=== PATIENT | male | born 1975 | race Caucasian/White ===

== ENCOUNTER → 2017-01-18 | Outpatient (CLI) | payer BC ==
[~2017-01-18] MED LIST: BUPR1PAT10 TD; HYDR-906; METO-448 PO
--- NOTE | 2017-01-18 11:15 | RADRPT ---
PROCEDURE: XR left elbow. CLINICAL INDICATION: Elbow pain TECHNIQUE: Three views of the elbow are available for review. COMPARISON: No prior studies are available for comparison. FINDINGS: There is mild enthesopathy involving the olecranon process at the insertion of the triceps tendon. There is normal mineralization, architecture and alignment. No fracture or osseous lesion is identi fied. The joints are unremarkable. The soft tissues are unremarkable. IMPRESSION: Mild enthesopathy involving the olecranon process at the insertion of the triceps tendon RPTAT: HGDB .Joey Farris MD, Date Time Electronically viewed and signed by .Joey Farris MD, on 01/18/2017 11:15 .B/
== END | disposition home or self-care (01) ==
LOC: RAD 10:17
DX: M70.32 Other bursitis of elbow, left elbow (principal); S52.022G Displaced fracture of olecranon process without intraarticular extension of left ulna, subsequent encounter for closed fracture with delayed healing; X58.XXXD Exposure to other specified factors, subsequent encounter
CPT/HCPCS: 73070

== ENCOUNTER → 2017-09-26 | Outpatient (CLI) | payer BC ==
--- NOTE | 2017-09-26 16:59 | RADRPT ---
PROCEDURE: XR Chest. CLINICAL INDICATION: Cough. TECHNIQUE: Two views. Frontal and lateral. COMPARISON: 06/19/2016. FINDINGS: The lungs are clear. The heart size is normal. There is calcification in the aorta consistent with atherosclerosis. There is no pleural effusion. There is no pneumothorax. IMPRESSION: 1. Atherosclerosis. 2. Clear lungs. 3. Otherwise unremarkable chest radiograph. RPTAT: QQ .Nura Bolden MD, MD Date Time Electronically viewed and signed by .Nura Bolden MD, on 09/26/2017 16:58 .R/
== END | disposition home or self-care (01) ==
LOC: RAD 16:01
DX: J18.9 Pneumonia, unspecified organism (principal); M51.26 Other intervertebral disc displacement, lumbar region
CPT/HCPCS: 71020

== ENCOUNTER → 2017-12-05 | Outpatient (CLI) | END | disposition home or self-care (01) ==

== ENCOUNTER → 2018-01-08 | Outpatient (CLI) | END | disposition home or self-care (01) ==

== ENCOUNTER 2018-01-31 13:34 | Day surgery (SDC) | END 2018-01-31 18:50 | disposition home or self-care (01) ==

== ENCOUNTER 2019-03-24 10:55 | Day surgery (SDC) | payer BC ==
[~2019-03-24] VITALS: Ht 170.2 cm; Wt 86.7 kg
[2019-03-24] VITALS (7 sets, daily range): BP systolic 93–118; BP diastolic 66–77; PULSE 74–107; RESP 16–20; Ht 170.2 cm; Wt 86.7 kg
[~2019-03-24 10:55] MED LIST changes: +ALBU8.5H8 INH; +AZIT250T PO; +PRED20TA PO
[2019-03-24] MEDS ORDERED: SYN2 PO (11:28)
[2019-03-24] MEDS ORDERED: METO-448 PO (11:29)
[2019-03-24] MEDS ORDERED: HYDR-4012 PO (11:30)
[2019-03-24] MEDS ORDERED: LACTATED RINGER'S 1,000 ML IV SCH (12:00)
--- NOTE | 2019-03-24 12:25 | PREAC ---
Date/Time of Note Date/Time of Note DATE: 03/24/19 TIME: 12:20 Anesthesia Eval and Record Evaluation Time Pre-Procedure Interview DATE: 03/24/19 TIME: 12:20 Age 43 Sex male NPO: 8 hrs Preoperative diagnosis bilateral lower extremity radiculopathy Planned procedure L4-S1 bilateral transforaminal epidurals Past Medical History Past Medical History: Includes (hx thyroid CA w/ surgery and radiation; chronic back pain; PVC) Surgery & Anesthesia Issues No known issue (gallbladder sx, thyroidectomy, knee surgeries, elbow sx) Meds Anticoagulation: No Beta Jen within 24 hr: Yes Reported Medications Hydrocodone/Acetaminophen (Gardner 7.5-325 Tablet) 1 Each Tablet, 1 EACH PO DAILY PRN for PAIN, TAB 03/24/19 Metoprolol Tartrate* (Lopressor*) 25 Mg Tab, 25 MG PO DAILY, #60 TAB 03/24/19 Levothyroxine Sodium* (Synthroid*) 200 Mcg Tablet, 250 MCG PO BEFORE BREAKFAST, #30 TAB 03/24/19 Discontinued Reported Medications Buprenorphine (Butrans) 1 Each Patch.tdwk, 1 EACH TD WEEKLY 05/25/16 Hydrocodone Bit-Acetaminophen (Gardner) 1 Tab Tablet 09/15/13 Metoprolol Tartrate* (Lopressor*) 25 Mg Tab, 25 MG PO DAILY 09/08/13 Discontinued Scripts Prednisone* (Prednisone*) 20 Mg Tab, 40 MG PO DAILY for 5 Days, TAB Prov:CHAPO CALDERON MD 11/22/18 Albuterol Sulfate* (Proair HFA*) 8.5 Gm Hfa.aer.ad, 2 PUFF INH Q4H PRN for WHEEZING AND SOB, #1 INHALER Prov:CHAPO CALDERON MD 11/22/18 Azithromycin* (Zithromax*) 250 Mg Tablet, 250 MG PO .ZPACK DIRECTED, #6 TAB TAKE 500 MG (2 TABS) THE FIRST DAY THEN 250 MG (1 TAB) DAYS 2-5 Prov:CHAPO CALDERON MD 11/22/18 Current Medications Lactated Ringer's 1,000 ml @ 25 mls/hr Q24H IV ; Start 03/24/19 at 12:00 Meds reviewed: Yes Allergies Coded Allergies: famotidine (Verified Allergy, Unknown, SLOW HEART BEAT, 03/24/19) ibuprofen (Verified Allergy, Unknown, SLOW HEART BEAT, 03/24/19) Uncoded Allergies: PORK (Allergy, Intermediate, RASH, 05/25/16) Allergies Reviewed: Yes Labs/Studies Labs Reviewed: Reviewed by anesthesiologist test: N/A Pre-procedure Exam Last vitals Vital Signs Date Temp Pulse Resp B/P (MAP) Pulse Ox O2 O2 Flow FiO2 Time Delivery Rate 03/24/19 98.3 107 16 118/77 98 Room Air 11:47 (91) Airway: Adequate mouth opening, Adequate thyromental dist Mallampati: Mallampati II Teeth: Normal (missing lower left molar) Lung: Normal Heart: Normal ASA Physical Status ASA physical status: 2 Emergency: None Planned Anesthetic General/MAC: MAC Pre-operative Attestations Prior to commencing anesthesia and surgery, the patient was re-evaluated, there was verification of: *The patient's identity *The results of appropriate recent lab work and preoperative vital signs *The above evaluation not changing prior to induction *Anesthetic plan, risk benefits, alternative and complications discussed with patient/family; questions answered; patient/family understands, accepts and wishes to proceed. REGAN GILES March 24, 2019 12:25
[2019-03-24] MEDS ORDERED: MEPERIDINE 25 MG INJ IV PRN (12:30)
[2019-03-24] MEDS ORDERED: morphine (1 MG/ML) 10ML SYRINGE IV PRN ×2 (12:30)
[2019-03-24] MEDS ORDERED: ONDANSETRON 4 MG INJ IV PRN (12:30)
[2019-03-24] MEDS ORDERED: ALBUTEROL 0.083% (NEB) 2.5 MG/3 ML AMP HHN PRN (12:30)
[2019-03-24] MEDS ORDERED: FENTAnyl 50 MCG/ML VIAL IV PRN ×2 (12:30)
[2019-03-24] MEDS ORDERED: OXYCODONE/ACETAMINOPHEN (5/325) TAB PO PRN ×2 (12:30)
[2019-03-24] MEDS ORDERED: HYDROmorphONE 1 MG/5 ML IV SYRINGE IV PRN ×3 (12:30)
[2019-03-24] MEDS ORDERED: LABETALOL HCL 20MG INJ IV PRN (12:30)
[2019-03-24] MEDS ORDERED: DIPHENHYDRAMINE 50 MG INJ IV PRN (12:30)
--- NOTE | 2019-03-24 12:39 | HPN ---
Date/Time of Note Date/Time of Note DATE: 03/24/19 TIME: 12:39 Interval H&P Admission Note Pt. seen H&P reviewed: No system changes KEISHA CHEUNG MD March 24, 2019 12:39
--- NOTE | 2019-03-24 12:51 | OPR ---
Date/Time of Note Date/Time of Note DATE: 03/24/19 TIME: 12:42 Operative Report Procedure Date: March 24, 2019 Preoperative Diagnosis lumbar radiculopathy Postoperative Diagnosis lumbar radiculopathy Operation/Procedure Performed Bilateral L4, L3 TFESI Surgeon see signature line [employer] Polisher None Anesthesia Type: MAC Estimated Blood Loss: none Transfusion none Specimen none Grafts/Implants none Tubes/Drains none Complications none Pt Condition Post Procedure: stable Disposition: PACU Procedure Description The patient was placed in the prone position on the radiolucent operating table. The lumbar area was prepped and draped in the appropriate sterile fashion. The left L4 level was identified for a transforaminal epidural injection and the overlying skin and subcutaneous tissue were anesthetized. A 22 gauge 3.5 inch spinal needle was passed through the skin wheal and advanced in a ventral direction until the tip of the needle was properly placed in the left superior posterior intervertebral foramen as confirmed by fluoroscopic views. No blood was aspirated. There was no CSF flow. Following negative aspiration, 0.3 mL contrast was injected to produce the epidurogram. There was appropriate needle placement and no intravascular or intrathecal flow. 0.2 mL of a 6 mg/mL solution of Kenalog and 1 mL of 1% Lidocaine was injected. With same fashion, the procedure was repeated at bilateral L4 and L3 levels. No blood was aspirated. There was no CSF flow. The patient tolerated the procedure well. Note: patient has pain at bilateral L3, L4 Levels, so the procedure was changed to bilateral L3, L4 level due to medical necessity. KEISHA CHEUNG MD March 24, 2019 12:51
[2019-03-24] MEDS ORDERED: BETAMET NA PHOS/AC(6 MG/ML) 5ML INJ ONE (13:01)
[2019-03-24] MEDS ORDERED: IOHEXOL 300MG/ML 30 ML BTL ONE (13:01)
[2019-03-24] MEDS ORDERED: LIDOCAINE 1% (MPF) 10 ML INJ ONE (13:01)
[2019-03-24] MEDS ORDERED: PROPOFOL 60 ML ONE (13:03)
[2019-03-24] MEDS ORDERED: LIDOCAINE 2% (SDV) 5 ML INJ ONE (13:04)
[2019-03-24] MEDS ORDERED: MIDAZOLAM 1 MG/ML 2 ML INJ ONE (13:04)
[2019-03-24] MEDS ORDERED: LIDOCAINE 1% (MPF) 10 ML INJ INJ ONE (13:25)
[2019-03-24] MEDS ORDERED: BETAMET NA PHOS/AC(6 MG/ML) 5ML INJ INJ ONE (13:25)
--- NOTE | 2019-03-24 13:53 | SIPON ---
Date/Time of Note Date/Time of Note DATE: 03/24/19 TIME: 13:52 Operative Report Preoperative Diagnosis lumbar radiculopathy Postoperative Diagnosis lumbar radiculopathy Operation/Procedure Performed bilateral L3, L4 TFESI Surgeon see signature line registered dental assistant NONE Anesthesia: MAC Estimated blood loss: none Transfusion Required none Specimen NONE Grafts/Implants none Complications none KEISHA CHEUNG MD March 24, 2019 13:53
--- NOTE | 2019-03-24 14:02 | PAC ---
Date/Time of Note Date/Time of Note DATE: 03/24/19 TIME: 14:01 Post-Anesthesia Notes Post-Anesthesia Note Last documented vital signs Vital Signs Date Temp Pulse Resp B/P Pulse Ox O2 O2 Flow FiO2 Time (MAP) Delivery Rate 03/24/19 98.3 98. 107 89 16 16 118/77 98 98 Room 11:47 135 5 (91) 93/ Air RA 3 66 Activity: WNL Respiratory function: WNL Cardiovascular function: WNL Mental status: Baseline Pain reasonably controlled: Yes Hydration appropriate: Yes Nausea/Vomiting absent: Yes REGAN GILES March 24, 2019 14:02
== END 2019-03-24 15:11 | disposition home or self-care (01) ==
LOC: SDS 10:55 → EEVIPCON 13:00 → SDS 15:11
PROVIDERS: ATTEND Anesthesiology
DX: M54.16 Radiculopathy, lumbar region (principal)
CPT/HCPCS: 64483; 76000; J0702; J2250; Q9967

== ENCOUNTER 2019-09-16 08:37 | Emergency (ER) | payer BC ==
[~2019-09-16] VITALS: Ht 165.1 cm; Wt 80.0 kg
[~2019-09-16 08:37] MED LIST changes: -ALBU8.5H8 INH; -AZIT250T PO; -BUPR1PAT10 TD; +HYDR-3605 PO; -HYDR-906; +LEVO175T6 PO; +LEVO200T45 PO; +LEVO50TA7 PO; -METO-448 PO; +METO25TA4 PO; -PRED20TA PO
[2019-09-16 08:41] VITALS: PULSE 74; Ht 165.1 cm; Wt 80.0 kg
[2019-09-16] MEDS ORDERED: ONDANSETRON (ODT) 4 MG TAB ODT STA (08:51)
[2019-09-16] MEDS ORDERED: HYDROmorphONE 2 MG/ML SYG IM STA ×2 (08:51→09:35)
[2019-09-16 10:09] VITALS: BP 142/78; RESP 18
== END 2019-09-16 10:16 | disposition home or self-care (01) ==
LOC: E/R 08:37
DX: R10.9 Unspecified abdominal pain (principal)
CPT/HCPCS: 74018; 96372; 99284; J1170